=== PATIENT | female | born 1975 | race Two or more races ===

== ENCOUNTER 2025-04-27 18:14 | Emergency (ER) | payer MEDICAID, OTHER ==
[~2025-04-27] VITALS: Ht 154.9 cm; Wt 64.7 kg
[2025-04-27] MEDS: BACITRACIN TOP OINT 1 UD PKG TOP ONE (19:08)
[2025-04-27] MEDS: LIDOCAINE 2%HCL (LOCAL ANESTH.) INJ 20ML MDV ID ONE (19:08)
--- NOTE | 2025-04-27 19:12 | ED.PDOC ---
History of Present Illness HPI Comments 49-year-old female presents with a chief compliant of right ear abscess. Patient was sent from urgent care after identifying that the abscess needed to be I&D. Patient states that the abscess has been present for the past 1 week. Chief Complaint: Abscess Time Seen by MD: 18:57 Reviewed Notes: Medications, Allergies Allergies: Coded Allergies: NO KNOWN ALLERGIES (Unverified , 04/27/25) Information Source: Patient Mode of Arrival: Ambulatory Severity: Moderate Timing: Days Duration: Since onset Prehospital treatment: None Past Medical History PAST MEDICAL HISTORY: Denies Surgical History: Denies all surgeries STREET COMMISSIONER History: Denies all STREET COMMISSIONER Hx Family History Family History: Reviewed,noncontributory to illness Social History Smoker: Non-Smoker Alcohol: Denies ETOH Use Drugs: Denies Drug Use Lives In: Home Constitutional: denies: chills, diaphoresis, fatigue, fever, malaise, sweats, weakness, others EENTM: denies: blurred vision, double vision, ear bleeding, ear discharge, ear drainage, ear pain, ear ringing, eye pain, eye redness, hearing loss, mouth pain, mouth swelling, nasal discharge, nose bleeding, nose congestion, nose pain, photophobia, tearing, throat pain, throat swelling, voice changes, others Respiratory: denies: cough, hemoptysis, orthopnea, SOB at rest, shortness of breath, SOB with excertion, stridor, wheezing, others Cardiovascular: denies: chest pain, dizzy spells, diaphoresis, Dyspnea on exertion, edema, irregular heart beat, left arm pain, lightheadedness, palpitations, PND, syncope, others Gastrointestinal: denies: abdomen distended, abdominal pain, blood streaked bowels, constipated, diarrhea, dysphagia, difficulty swallowing, hematemesis, melena, nausea, poor appetite, poor fluid intake, rectal bleeding, rectal pain, vomiting, others Genitourinary: denies: abnormal vagina bleeding, burning, dyspareunia, dysuria, flank pain, frequency, hematuria, incontinence, pain, , vagina discharge, urgency, others Neurological: denies: dizziness, fainting, headache, left sided numbness, left sided weakness, numbness, paresthesia, pre-existing deficit, right sided numbness, right sided weakness, seizure, speech problems, tingling, tremors, weakness, others Musculoskeletal: denies: back pain, gout, joint pain, joint swelling, muscle pain, muscle stiffness, neck pain, others Integumetry: denies: bruises, change in color, change in hair/nails, dryness, laceration, lesions, lumps, rash, wounds, others Allergic/Immunocompromised: denies: Difficulty Healing, Frequent Infections, Hives, Itching, others Hematologic/Lymphatic: denies: anemia, blood clots, easy bleeding, easy bruising, swollen glands, others Endocrine: denies: excessive hunger, excessive sweating, excessive thirst, excessive urination, flushing, intolerance to cold, intolerance to heat, unexp lained weight gain, unexplained weight loss, others Psychiatric: denies: anxiety, bipolar disorder, depression, hopeless, panic disorder, schizophrenia, sleepless, suicidal, others All Other Systems: Reviewed and Negative (REVIEWED AND NEGATIVE EXCEPT FOR WHAT IS STATED IN THE HPI) Physical Exam General Appearance: Moderate Distress, Normal HEENT: Normal ENT Inspection, PERRL/EOMI, Pharynx Normal, TMs Normal, Other (Abscess formation to the right ear very painful) Neck: Full Range of Motion, Non-Tender, Normal, Normal Inspection Respiratory: Chest Non-Tender, Lungs Clear, No Accessory Muscle Use, No Respiratory Distress, Normal Breath Sounds Cardiovascular: No Edema, No JVD, No Murmur, No Gallop, Normal Peripheral Pulses, Regular Rate/Rhythm Breast Exam: Deferred Gastrointestinal: No Organomegaly, Non Tender, No Pulsatile Mass, Normal Bowel Sounds, Soft Genitalia: Deferred Pelvic: Deferred Rectal: Deferred Extremities: No calf tenderness, Normal capillary refill, Normal inspection, Normal range of motion, Non-tender, No pedal edema Musculoskeletal : Apperance: Normal Neurologic: Alert, group art supervisor II-XII nml as Tested, No Motor Deficits, Normal Affect, Normal Mood, No Sensory Deficits Cerebellar Function: Normal Reflexes: Normal Skin: Dry, Normal Color, Warm Peripheral Pulses: 1+ carotid (R), 1+ carotid (L) Lymphatic: No Adenopathy Was a procedure done? Was a procedure done?: Yes Sedation Sedation?: No Incision and Drainage Location Right ear Anesthetic: Lidocaine Preparation: Wound machine cleaner Incision and Wound: Pus, Blood Informed consent obtained: No Risks/benefits/alt described: No Notes Patient accepted the procedure well dressing applied Differential Dx Considerations may include: Abscess formation X-Ray, Labs, Meds, VS Vital Signs Date Time Temp Pulse Resp B/P (MAP) Pulse Ox O2 Delivery O2 Flow Rate FiO2 04/27/25 18:16 98.4 84 16 139/87 97 98.4 X-Ray, Labs, Meds, VS Comment Abscess to the right ear I and D done dressing applied Patient will be discharged home to follow up with her PCP Time of 1ST Reevaluation: 19:27 Reevaluation 1ST: Unchanged Time of 2ND Reevaluation: 19:28 Reevaluation 2ND: Improved Consultation: PCP Patient Education/Counseling: Diagnosis, Treatment, Prognosis, Need For Follow Up Family Education/Counseling: Diagnosis, Treatment, Prognosis, Need For Follow Up, No Family Present SEPSIS Sepsis Screen Date sepsis recognized/suspect: Apr 27, 2025 Time Sepsis recognized/suspect: 1816 Recent Procedure: No On Antibiotic Therapy: No Respiratory Rate >20: No Heart Rate >90: No Temp<36 C (96.8 F) or >38.3 C: No SBP <90 or MAP <65 mmHG: No New Acute Mental Status Change: No Is the patient on CPAP, BIPAP,: No Physician Orders Peroxide (04/27/25 19:01) 4X4 (04/27/25 19:01) Sterile Gloves (04/27/25 19:01) [place] (04/27/25 19:01) Vital Signs Date Time Temp Pulse Resp B/P (MAP) Pulse Ox O2 Delivery O2 Flow Rate FiO2 04/27/25 18:16 98.4 84 16 139/87 97 98.4 Departure 1 Departure Time of Disposition: : Impression: Primary Impression: Abscess of right earlobe Disposition: HOME / SELF CARE / HOMELESS Condition: Fair Additional Instructions: Acute ear clean and dry with a peroxide e-Prescriptions Naproxen (Naproxen) 375 Mg Tab 375 MG PO TID for 10 Days, #30 TAB Prov: ROBIN STEINBERG MD 04/27/25 Cefdinir (Cefdinir) 300 Mg Cap 1 CAP PO BID for 7 Days, #14 CAP Prov: ROBIN STEINBERG MD 04/27/25 Discharged With: Self Critical Care Note Critical Care Time?: No Stability Stability form required: No Heart Score Heart Score: Heart Score Response (Comments) Value History N/A 0 EKG N/A 0 Age 45-64 1 Risk Factors No known risk factors 0 Troponin N/A 0 Total 1 I personally scribed for ROBIN STEINBERG MD ([email or web address]) on 04/27/25 at 19:12. Electronically submitted by Torin Jacques ([email or web address]). ROBIN STEINBERG MD Apr 27, 2025 19:12
[2025-04-27] MEDS ORDERED: CEFD300C2 PO (19:32)
[2025-04-27] MEDS ORDERED: NAPR-957 PO (19:32)
[2025-04-27 20:25] VITALS: BP 139/81; PULSE 75; RESP 18; TEMP 97.9; O2SAT 100
== END 2025-04-27 20:28 | disposition home or self-care (01) ==
LOC: ER 18:14
DX: H60.01 Abscess of right external ear (principal); Z79.899 Other long term (current) drug therapy
CPT/HCPCS: 10060